=== PATIENT | female | born 1950 | race African-American/Black ===

== ENCOUNTER 2016-10-05 14:26 | Emergency (ER) | payer MEDICARE, OTHER ==
[~2016-10-05] VITALS: Ht 157.5 cm; Wt 98.5 kg
[2016-10-05 14:32] VITALS: Ht 157.5 cm; Wt 98.5 kg
[2016-10-05 18:52] LABS: ADD SCAN DIFF NO
[2016-10-05 18:57] LABS: BASOPHILS % 0.7 % (0.0-2.0); EOSINOPHILS # 0.2 10^3/ul (0.0-0.5); EOSINOPHILS % 4.2 % (0.0-7.0); HEMATOCRIT 41.3 % (37.0-47.0); HEMOGLOBIN 13.3 g/dl (12.0-16.0); LYMPHOCYTES % 34.4 % (15.0-51.0); MEAN CORPUSCULAR HEMOGLOBIN 27.7 pg (29.0-33.0); MEAN CORPUSCULAR HGB CONC 32.2 g/dl (32.0-37.0); MEAN CORPUSCULAR VOLUME 85.9 fl (82.0-101.0); MEAN PLATELET VOLUME 8.6 fl (7.4-10.4); MONOCYTE # 0.4 10^3/ul (0.3-0.9); MONOCYTES % 7.1 % (0.0-11.0); NEUTROPHIL # 3.1 10^3/ul (1.6-7.5); NEUTROPHILS % 53.3 % (39.0-77.0); PLATELET COUNT 329 10^3/UL (140-415); RED BLOOD COUNT 4.81 10^6/ul (4.20-5.40); RED CELL DISTRIBUTION WIDTH 15.3 % (11.5-14.5); WHITE BLOOD COUNT 5.8 10^3/ul (4.8-10.8)
--- NOTE | 2016-10-05 18:57 | RADRPT ---
PROCEDURE: XR Chest. CLINICAL INDICATION: Chest pain TECHNIQUE: A single portable view of the chest was obtained. COMPARISON: 09/07/2014 FINDINGS: The technique is lordotic. The cardiomediastinal silhouette is magnified. The lung volumes are low with bibasilar compressive atelectasis. The remaining lungs and pleural spaces are clear. The soft tissues and osseous structures are unremarkable. IMPRESSION: Low lung volumes with bibasilar compressive atelectasis. RPTAT: HPNM Physician Jerri Date Time Electronically viewed and signed by Alfredo Patterson Physician on 10/05/2016 18:57 /
[2016-10-05 19:06] LABS: INR 1.51; PROTIME 18.3 Sec (12.2-14.2); PT RATIO 1.4
[2016-10-05 19:07] LABS: PARTIAL THROMBOPLASTIN TIME 35.4 Sec (25.0-35.0)
[2016-10-05 19:15] LABS: ALBUMIN 3.9 g/dl (3.3-4.9); CHLORIDE 105 mmol/L (97-110); SODIUM 146 mmol/L (135-144)
[2016-10-05 19:16] LABS: POTASSIUM 3.4 mmol/L (3.5-5.1)
[2016-10-05 19:18] LABS: ALANINE AMINOTRANSFERASE 25 IU/L (13-69); ALBUMIN/GLOBULIN RATIO 1.14; ALKALINE PHOSPHATASE 105 IU/L (42-121); ANION GAP 14 (8-16); ASPARTATE AMINO TRANSFERASE 18 IU/L (15-46); BILIRUBIN,INDIRECT 0.4 mg/dl (0-1.1); BILIRUBIN,TOTAL 0.4 mg/dl (0.2-1.3); BLOOD UREA NITROGEN 16 mg/dl (7-20); CARBON DIOXIDE 30 mmol/L (21-31); CREATININE 0.96 mg/dl (0.44-1.00); GLUCOSE 115 mg/dl (70-220); TOTAL PROTEIN 7.3 g/dl (6.1-8.1)
[2016-10-05 19:19] LABS: CALCIUM 9.1 mg/dl (8.4-10.2)
[2016-10-05] MEDS ORDERED: WARF6TAB PO (19:27)
[2016-10-05] MEDS ORDERED: WARF1TAB47 PO (19:27)
[2016-10-05] MEDS ORDERED: ATOR20TA38 PO (19:28)
[2016-10-05] MEDS ORDERED: AMLO1CAP10 PO (19:28)
[2016-10-05 19:37] LABS: TROPONIN-I < 0.010 ng/ml (0.00-0.12)
[2016-10-05] MEDS ORDERED: FURO-110 PO (19:47)
[2016-10-05] MEDS ORDERED: POTA10TA37 PO (19:49)
[2016-10-05] MEDS ORDERED: POTASSIUM CHLORIDE (SR) 20 MEQ TAB PO STA (19:57)
--- NOTE | 2016-10-05 19:59 | ERD ---
ER Documentation Chief Complaint Date/Time DATE: 10/05/16 TIME: 19:53 Chief Complaint bilateral lower extremity swelling for past week,lung sounds clear,-cp,-sob HPI 66-year-old female with a history of hypertension and strokes presenting to the ER complaining of bilateral lower extremity edema for over one month. She denies any associated shortness of breath, chest pain, dizziness, or problems with urination. She does not think she has a history of heart failure, but she is not sure. She denies any recent travel, immobilization, surgeries, or history of blood clots. She has an appointment with her sternman on October 19. She has been trying to see her primary care doctor, Dr. Allen, was been out of town. ROS All systems reviewed and are negative except as per history of present illness. Medications Home Meds Active Scripts Potassium Chloride* (K-Dur*) 10 Meq Tab.prt.sr, 10 MEQ PO DAILY, #20 TAB Prov:GILBERT GILBERT MD 10/05/16 Furosemide* (Lasix*) 20 Mg Tablet, 20 MG PO DAILY, #20 TAB Prov:GILBERT GILBERT MD 10/05/16 Reported Medications Atorvastatin Calcium* (Atorvastatin Calcium*) 20 Mg Tablet, 20 MG PO QHS, #30 TAB 10/05/16 Amlodipine Besylate/Benazepril (Amlodipine-Benazepril 5-20 mg) 1 Each Capsule, 1 EACH PO BID, CAP 10/05/16 Warfarin Sodium* (Coumadin*) 6 Mg Tablet, 6 MG PO DAILY, TAB 10/05/16 Warfarin Sodium* (Coumadin*) 1 Mg Tablet, 1 MG PO DAILY, TAB 10/05/16 Allergies Allergies: Coded Allergies: No Known Drug Allergy (Verified Allergy, Unknown, 10/05/16) PMhx/Soc History of Surgery: Yes (alyx,,hernia repair) Hx Neurological Disorder: Yes (strokes) Hx Cardiac Disorders: Yes (hypertension) Hx Psychiatric Problems: No Hx Alcohol Use: No Hx Substance Use: No Hx Tobacco Use: No Smoking Status: Never smoker FmHx Family History: No diabetes Physical Exam Vitals Vital Signs Date Time Temp Pulse Resp B/P Pulse Ox O2 Delivery O2 Flow Rate FiO2 10/05/16 18:20 61 20 136/91 98 Room Air 10/05/16 14:32 98.6 80 18 152/89 97 Physical Exam Const: Nontoxic, no distress Head: Atraumatic Eyes: Normal Conjunctiva ENT: Normal External Ears, Nose and Mouth. Neck: Full range of motion. No meningismus. Resp: Clear to auscultation bilaterally Cardio: Regular rate and rhythm, no murmurs Abd: Soft, non tender, non distended. Normal bowel sounds Skin: No petechiae or rashes Ext: Bilateral lower extremity edema to the knees, 2+ pitting Neur: Awake and alert Psych: Normal Mood and Affect Result Diagram: 10/05/165 10/05/16 183 Results 24 hrs Laboratory Tests Test 10/05/16 18:35 Activated Partial Thromboplast Time 35.4Sec Alanine Aminotransferase (ALT/SGPT) 25IU/L Albumin 3.9g/dl Albumin/Globulin Ratio 1.14 Alkaline Phosphatase 105IU/L Anion Gap 14 Aspartate Amino Transf (AST/SGOT) 18IU/L Basophils # 0.010^3/ul Basophils % 0.7% Blood Urea Nitrogen 16mg/dl Calcium Level 9.1mg/dl Carbon Dioxide Level 30mmol/L Chloride Level 105mmol/L Creatinine 0.96mg/dl Direct Bilirubin 0.00mg/dl Eosinophils # 0.210^3/ul Eosinophils % 4.2% Globulin 3.40g/dl Glucose Level 115mg/dl Hematocrit 41.3% Hemoglobin 13.3g/dl INR International Normalized Ratio 1.51 Indirect Bilirubin 0.4mg/dl Lymphocytes # 2.010^3/ul Lymphocytes % 34.4% Mean Corpuscular Hemoglobin 27.7pg Mean Corpuscular Hemoglobin Concent 32.2g/dl Mean Corpuscular Volume 85.9fl Mean Platelet Volume 8.6fl Monocytes # 0.410^3/ul Monocytes % 7.1% Neutrophils # 3.110^3/ul Neutrophils % 53.3% Nucleated Red Blood Cells # 0.010^3/ul Nucleated Red Blood Cells % 0.0/100WBC Platelet Count 39969^3/UL Potassium Level 3.4mmol/L Prothrombin Time 18.3Sec Prothrombin Time Ratio 1.4 Red Blood Count 4.8110^6/ul Red Cell Distribution Width 15.3% Sodium Level 146mmol/L Total Bilirubin 0.4mg/dl Total Protein 7.3g/dl Troponin I < 0.010ng/ml White Blood Count 5.810^3/ul Current Medications Medications (Trade) Dose Ordered Sig/Mercedes Route PRN Reason Start Time Stop Time Status Last Admin Dose Admin Furosemide (Lasix) 20 mg ONCE ONCE IV 10/05/16 20:00 10/05/16 20:01 Procedures/MDM EKG: Rate/Rhythm: Normal Sinus Rhythm QRS, ST, T-waves: No changes consistent w/ acute ischemia Impression: No evidence of ischemia or arrhythmia Patient's presenting a bilateral lower extremity edema. She has no signs of DVT. She is hemodynamically stable. I suspect that the edema secondary to heart failure. However the patient has no signs of decompensated heart failure at this time. I have a low suspicion for acute coronary syndrome or pulmonary embolism. Labs are only notable for mild hypokalemia. Chest x-ray does not show fluid overload. She was given 40 mEq of potassium orally. She was given one dose of Lasix 20 mg IV. I will discharge her with a prescription for Lasix and potassium. I advised she follow-up with her primary care doctor as soon as possible in the next 2-3 days for a repeat BMP to check her potassium. She will follow-up with her sternman as scheduled. Departure Diagnosis: Primary Impression: Peripheral edema Condition: Stable Patient Instructions: Peripheral Edema, Bilateral Additional Instructions: You will need to see your doctor for a blood test in 2-3 days to check your potassium. Follow-up with your sternman as scheduled. GILBERT GILBERT MD Oct 05, 2016 19:59
[2016-10-05] MEDS ORDERED: FUROSEMIDE 20 MG INJ IV ONE (20:00)
[2016-10-05 20:22] VITALS: BP 167/88; PULSE 65; RESP 16; TEMP 98.6
== END 2016-10-05 20:23 | disposition home or self-care (01) ==
LOC: E/R 14:26
DX: R60.0 Localized edema (principal); R40.2252 Coma scale, best verbal response, oriented, at arrival to emergency department; I10 Essential (primary) hypertension; R40.2142 Coma scale, eyes open, spontaneous, at arrival to emergency department; R40.2362 Coma scale, best motor response, obeys commands, at arrival to emergency department; Z79.01 Long term (current) use of anticoagulants
CPT/HCPCS: 36415; 71010; 80053; 84484; 85025; 85610; 85730; 96374; 99285; J1940; 93005

== ENCOUNTER 2018-12-04 13:28 | Emergency (ER) | payer MEDICARE, OTHER ==
[~2018-12-04] VITALS: Wt 109.0 kg
[~2018-12-04 13:28] MED LIST: AMLO1CAP10 PO; ATOR20TA38 PO; FURO-110 PO; POTA10TA37 PO; WARF1TAB PO; WARF6TAB PO
[2018-12-04] MEDS ORDERED: SODIUM CHLORIDE 0.9% 1L BAG IV* STA (14:00)
[2018-12-04] MEDS ORDERED: AMLO1CAP10 PO (15:42)
[2018-12-04] MEDS ORDERED: ATOR20TA38 PO (15:43)
[2018-12-04] MEDS ORDERED: VANCOMYCIN 1 GM (PMX) 250 ML IVPB STA (16:34)
[2018-12-04] MEDS ORDERED: PIPER-TAZO 3.375 GM IV (PMX) 100 ML IVPB STA (16:34)
--- NOTE | 2018-12-04 17:34 | ERD ---
ER Documentation Chief Complaint Chief Complaint BILATERAL LOWER LEG WOUND DRAINAGE AND REDNESS. FOR OVER A YEAR HPI This is a 68-year-old female with a history of CKD, chronic peripheral edema, chronic wound to her lower extremity's bilaterally, who presents for evaluation of increased wound drainage and pain over her right lower extremity. Patient has been receiving wound care, however her clinic is noted that her wounds have begun to have a foul odor, and have had increased drainage. Patient endorses pain, she denies fever, there are no relieving or aggravating factors. ROS All systems reviewed and are negative except as per history of present illness. Medications Home Meds Reported Medications Atorvastatin Calcium* (Atorvastatin Calcium*) 20 Mg Tablet, 20 MG PO QHS, #30 TAB 12/04/18 Amlodipine Besylate/Benazepril (Amlodipine-Benazepril 5-20 mg) 1 Each Capsule, 1 EACH PO DAILY, CAP 12/04/18 Discontinued Reported Medications Atorvastatin Calcium* (Atorvastatin Calcium*) 20 Mg Tablet, 20 MG PO QHS, #30 TAB 10/05/16 Amlodipine Besylate/Benazepril (Amlodipine-Benazepril 5-20 mg) 1 Each Capsule, 1 EACH PO BID, CAP 10/05/16 Warfarin Sodium* (Coumadin*) 6 Mg Tablet, 6 MG PO DAILY, TAB 10/05/16 Warfarin Sodium* (Coumadin*) 1 Mg Tablet, 1 MG PO DAILY, TAB 10/05/16 Discontinued Scripts Potassium Chloride* (K-Dur*) 10 Meq Tab.prt.sr, 10 MEQ PO DAILY, #20 TAB Prov:GILBERT GILBERT MD 10/05/16 Furosemide* (Lasix*) 20 Mg Tablet, 20 MG PO DAILY, #20 TAB Prov:GILBERT GILBERT MD 10/05/16 Allergies Allergies: Coded Allergies: No Known Drug Allergy (Verified Allergy, Unknown, 12/04/18) PMhx/Soc History of Surgery: Yes (alyx,,hernia repair) Hx Neurological Disorder: Yes (strokes) Hx Cardiac Disorders: Yes (hypertension) Hx Psychiatric Problems: No Hx Alcohol Use: No Hx Substance Use: No Hx Tobacco Use: Yes (1/2PACK/DAY) Smoking Status: Current every day smoker Physical Exam Vitals Vital Signs Date Temp Pulse Resp B/P (MAP) Pulse Ox O2 O2 Flow FiO2 Time Delivery Rate 12/04/18 99.0 87 20 119/77 99 Room Air 15:30 (91) 12/04/18 99.0 108 20 132/65 98 13:31 (87) Physical Exam Const: No acute distress Head: Atraumatic Eyes: Normal Conjunctiva ENT: Normal External Ears, Nose and Mouth. Neck: Full range of motion. No meningismus. Resp: Clear to auscultation bilaterally Cardio: Regular rate and rhythm, no murmurs Abd: Soft, non tender, non distended. Normal bowel sounds Skin: No petechiae or rashes Back: No midline or flank tenderness Ext: There is marked peripheral edema noted bilaterally, there are wounds noted bilaterally, with multiple raised erythematous blisters noted anteriorly, there is a purulent odor coming from the wounds, there are no clear fluctuant abscesses Neur: Awake and alert Psych: Normal Mood and Affect Result Diagram: 12/04/18 1536 12/04/18 1536 Results 24 hrs Laboratory Tests Test 12/04/18 15:33 12/04/18 15:36 POC Venous Lactate 1.4 mmol/L White Blood Count 4.7 10^3/ul Red Blood Count 4.95 10^6/ul Hemoglobin 12.9 g/dl Hematocrit 41.3 % Mean Corpuscular Volume 83.4 fl Mean Corpuscular Hemoglobin 26.1 pg Mean Corpuscular Hemoglobin Concent 31.2 g/dl Red Cell Distribution Width 15.1 % Platelet Count 354 10^3/UL Mean Platelet Volume 8.0 fl Immature Granulocytes % 0.200 % Neutrophils % 65.2 % Lymphocytes % 24.3 % Monocytes % 7.4 % Eosinophils % 2.3 % Basophils % 0.6 % Nucleated Red Blood Cells % 0.0 /100WBC Immature Granulocytes # 0.010 10^3/ul Neutrophils # 3.1 10^3/ul Lymphocytes # 1.2 10^3/ul Monocytes # 0.4 10^3/ul Eosinophils # 0.1 10^3/ul Basophils # 0.0 10^3/ul Nucleated Red Blood Cells # 0.0 10^3/ul Erythrocyte Sedimentation Rate 40 mm/Hr Prothrombin Time 12.8 Sec Prothrombin Time Ratio 1.0 INR International Normalized Ratio 0.95 Activated Partial Thromboplast Time 30.2 Sec Sodium Level 138 mmol/L Potassium Level 4.0 mmol/L Chloride Level 104 mmol/L Carbon Dioxide Level 22 mmol/L Anion Gap 12 Blood Urea Nitrogen 21 mg/dl Creatinine 1.09 mg/dl Est Glomerular Filtrat Rate mL/min > 60 mL/min Glucose Level 100 mg/dl Calcium Level 9.3 mg/dl Total Bilirubin 0.4 mg/dl Direct Bilirubin 0.00 mg/dl Indirect Bilirubin 0.4 mg/dl Aspartate Amino Transf (AST/SGOT) 21 IU/L Alanine Aminotransferase (ALT/SGPT) 20 IU/L Alkaline Phosphatase 139 IU/L Troponin I < 0.012 ng/ml C-Reactive Protein 4.5 mg/dl Total Protein 8.2 g/dl Albumin 3.9 g/dl Globulin 4.30 g/dl Albumin/Globulin Ratio 0.90 Current Medications Medications Dose Sig/Mercedes Start Time Status Last (Trade) Ordered Route PRN Stop Time Admin Dose Reason Admin Sodium 500 ml BOLUS OVER 2 12/04/18 DC 12/04/18 Chloride HOURS STAT 14:00 15:30 (NS) IV* 12/04/18 14:02 Vancomycin 250 ml @ ONCE STAT 12/04/18 12/04/18 HCl 125 mls/hr IVPB 16:34 17:33 12/04/18 18:33 Piperacillin 100 ml @ ONCE STAT 12/04/18 DC 12/04/18 Sod/ 200 mls/hr IVPB 16:34 16:45 Tazobactam 12/04/18 17:03 Sod Procedures/MDM This 68-year-old female who presents with drainage and foul odor to her lower extremities. She has chronic wounds to her lotion is bilaterally, however I am concerned now that her wounds have become infected. She has no fever, and she does not have sepsis or severe sepsis. I reviewed her x-ray I do not see any clear signs of gas, or evidence of bony erosion. Her CRP was noted to be elevated, I offered the patient admission, and consult to Dr. Allen for admission, the patient however refused, and wished to be treated in outpatient with antibiotics. She understood that her wounds and her infection may not heal completely, encouraged her to return to ED if she has any worsening symptoms at discharge she was in no distress. EKG: Rate/Rhythm: Normal Sinus Rhythm QRS, ST, T-waves: No changes consistent w/ acute ischemia Impression: No evidence of ischemia or arrhythmia Departure Diagnosis: Primary Impression: Cellulitis Site of cellulitis: unspecified site Qualified Codes: L03.90 - Cellulitis, unspecified Condition: Stable EROS SRIVASTAVA MD Dec 04, 2018 17:34
[2018-12-04] MEDS ORDERED: SULF1TAB31 PO (18:32)
[2018-12-04] MEDS ORDERED: CEPH-443 PO (18:32)
[2018-12-04 19:30] VITALS: BP 101/83; PULSE 69; RESP 14
== END 2018-12-04 19:40 | disposition home or self-care (01) ==
LOC: E/R 13:28 → CANBEDREQ 20:11
DX: L03.115 Cellulitis of right lower limb (principal); I12.9 Hypertensive chronic kidney disease with stage 1 through stage 4 chronic kidney disease, or unspecified chronic kidney disease; N18.9 Chronic kidney disease, unspecified; F17.210 Nicotine dependence, cigarettes, uncomplicated
CPT/HCPCS: 36415; 73590; 80053; 83605; 84484; 85025; 85610; 85651; 85730; 86140; 87040; 93005; 96374; 96375; 99285; J2543; J3370; J7030